=== PATIENT | male | born 1955 | race Hispanic/Latino ===

== ENCOUNTER 2017-05-18 07:14 | Day surgery (SDC) | payer MEDICARE, OTHER ==
[2017-05-14 09:43] VITALS: BMI 29.0
[2017-05-18] MEDS ORDERED: Lidocaine 1% Inj (20ml) ONE (08:07)
[2017-05-18] MEDS ORDERED: Propofol 10 mg/ml Inj (20 ML) ONE (08:07)
[2017-05-18] MEDS ORDERED: Atropine 0.4 mg/ml Inj (1 mL) ONE (08:50)
[2017-05-18] MEDS ORDERED: Sodium Chloride 0.9% 1,000 ML IV SCH (09:15)
[2017-05-18 09:45] VITALS: BP 116/78; PULSE 80; RESP 16; TEMP 97.7; O2SAT 98
== END 2017-05-18 10:16 | disposition home or self-care (01) ==
LOC: ENDO 07:14
PROVIDERS: ATTEND Internal Medicine Gastroenterology
DX: D12.2 Benign neoplasm of ascending colon (principal); K57.30 Diverticulosis of large intestine without perforation or abscess without bleeding; K64.4 Residual hemorrhoidal skin tags; K64.8 Other hemorrhoids; Q43.8 Other specified congenital malformations of intestine
CPT/HCPCS: 45380; 88305; J2704; J7040